=== PATIENT | female | born 1975 | race Caucasian/White ===

== ENCOUNTER 2018-04-11 21:57 | Emergency (ER) | payer BC ==
[2018-04-11 22:07] VITALS: O2SAT 97
--- NOTE | 2018-04-11 22:46 | ED.PDOC ---
History of Present Illness - General Chief Complaint: Neuro Symptoms/Deficits Stated Complaint: L elbow pain, Left side tingling Time Seen by Provider: 04/11/18 22:41 Additional Information: 42 YEAR OLD WHO HAD DONATED PLASMA AT 5 PM WAS RETURNING FROM [place] TO [place] AND AT AROUND 8.15 SHE STARTED TO EXPERIENCE TINGLING / NUMBNESS THAT STARTED IN THE HEAD AND LEFT SIDE OF THE FACE AND LEFT ARM AND LEG SHE DESCRIBES IT COMBINATION OF PAIN TINGLING AND NUMBNESS SHE DID HAVE MODERATE HEADACHE AND LEFT EYE VISION WAS BLURRED NO SLURRED SPEECH REPORTED THOUGH NO WEAKNESS SHE FEELS THE LEFT LEG FEELS LIKE A BAG OF SAND SHE STATES HER SYMPTOMS ARE NOT RESOLVED - History of Present Illness Timing/Duration: 1-3 hours Severity: moderate Improving Factors: nothing Worsening Factors: nothing Associated Symptoms: paresthesia, vision changes Allergies/Adverse Reactions: Allergies Sulfa Antibiotics Allergy (Verified 04/11/18 22:05) Home Medications: Ambulatory Orders Albuterol Inhaler [Ventolin Hfa Inhaler] 04/11/18 Review of Systems - Review of Systems Constitutional: States: no symptoms reported EENTM: States: blurred vision Respiratory: States: no symptoms reported Cardiology: States: no symptoms reported Gastrointestinal/Abdominal: States: no symptoms reported Genitourinary: States: no symptoms reported Musculoskeletal: States: no symptoms reported Skin: States: no symptoms reported Neurological: States: see HPI Endocrine: States: no symptoms reported Hematologic/Lymphatic: States: no symptoms reported Past Medical History (General) - Patient Medical History Hx Asthma: Yes Hx Diabetes: No - Vaccination History Hx Tetanus, Diphtheria Vaccination: Yes - Female History Patient is a Female of Child Bearing Age (10 -59 yrs old): Yes Patient : No Family Medical History - Family History Father Family History: Unknown Physical Exam - Physical Exam General Appearance: Alert, Comfortable Eye Exam: bilateral normal ENT Exam: normal ENT inspection, hearing grossly normal, TMs normal, pharynx normal Neck: non-tender, full range of motion, supple Respiratory: chest non-tender, lungs clear, normal breath sounds, no respiratory distress, no accessory muscle use Cardiovascular/Chest: normal peripheral pulses, regular rate, rhythm, no edema, no gallop Gastrointestinal/Abdominal: normal bowel sounds, non tender, soft, no organomegaly, no pulsatile mass Back Exam: normal inspection, no CVA tenderness, no vertebral tenderness Extremities Exam: non-tender, normal range of motion, no evidence of injury Mental Status: alert, 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6 L MCHC 32.4 L RDW 13.8 Plt Count 348 MPV 8.5 Absolute Neuts (auto) 8.90 H Absolute Lymphs (auto) 2.30 Absolute Monos (auto) 0.60 Absolute Eos (auto) 0.10 Absolute Basos (auto) 0.10 Neutrophils % 74.3 Lymphocytes % 19.0 L Monocytes % 5.0 Eosinophils % 1.1 Basophils % 0.6 PT 11.4 INR 0.980 PTT (SP) 30.3 Sodium 127 L Potassium 4.2 Chloride 96 L Carbon Dioxide 19 L Anion Gap 16.2 BUN 14 Creatinine 0.70 BUN/Creatinine Ratio 20.0 Random Glucose 548 H* Serum Osmolality 280.6 Calcium 8.5 Total Bilirubin 0.4 AST 30 ALT 26 Alkaline Phosphatase 73 Serum Total Protein 6.6 Albumin 3.3 Globulin 3.3 Albumin/Globulin Ratio 1.0 L Departure - Departure Clinical Impression: Transient ischaemic attack (TIA), and cerebral infarction without residual deficits, TIA (transient ischemic attack), Uncontrolled diabetes mellitus Time of Disposition: 00:28 Disposition: Transfer to Hospital Condition: Good Departure Forms: ED Discharge - Pt. Copy, Patient Portal Self Enrollment Home Medications: Ambulatory Orders Albuterol Inhaler [Ventolin Hfa Inhaler] 04/11/18 Transfer to Outside Facility - Transfer Information Accepting Provider:: DR MATA Accepting Facility: [facility] Reason for Transfer: specialized care not available
[2018-04-11] MEDS ORDERED: LABETALOL INJ 5 MG/ML VIAL IV ONE (22:50)
--- NOTE | 2018-04-11 23:20 | CT ---
EXAM: NONCONTRAST BRAIN CT EXAMINATION. CLINICAL INDICATION: Left-sided numbness. Possible stroke. COMPARISON: None. TECHNIQUE: Using low dose helical CT technique, thin section axial images were performed through the brain without the administration of intravenous or subarachnoid contrast material. FINDINGS: Bilateral small benign perivascular spaces are located in the lower centrum semiovale brain. Brain volume is otherwise normal. No diffuse brain swelling or brain herniation. No hydrocephalus. No subdural or epidural hematomas. No large subacute brain infarction. No parenchymal brain hemorrhage or evidence of intracranial mass lesion. The brainstem and cerebellum are normal. Cerebral white matter is grossly normal. Caudate heads, lentiform nuclei, thalami and internal capsules are normal. Bones of the skull and skull base are normal. The middle ears and mastoid air cells are clear. The partially visualized paranasal sinuses are clear. Globes and orbits are grossly normal. IMPRESSION: 1. Normal noncontrast brain CT examination. This exam was performed according to our departmental dose-optimization program, which includes automated exposure control, adjustment of the mA and/or kV according to patient size and/or use of iterative reconstruction technique. Electronically signed by: Nato Thakkar MD 04/11/2018 11:19 PM CDT
[2018-04-12 00:06] VITALS: TEMP 97.5
[2018-04-12] MEDS ORDERED: INSULIN, REG.(HUMAN) 100 U/ML VIAL IV ONE (00:29)
[2018-04-12] MEDS ORDERED: SODIUM CHLORIDE 0.9% 1000ML 1,000 ML IVS ONE (00:32)
[2018-04-12] MEDS ORDERED: SODIUM CHLORIDE 0.9% 1000ML 1,000 ML ONE (00:33)
[2018-04-12 01:00] VITALS: BP 120/79
== END 2018-04-12 01:19 | disposition short-term general hospital (02) ==
LOC: ER 21:57
DX: G45.9 Transient cerebral ischemic attack, unspecified (principal); E11.65 Type 2 diabetes mellitus with hyperglycemia; J45.909 Unspecified asthma, uncomplicated
CPT/HCPCS: 36415; 70450; 80053; 85025; 85610; 85730; 93005; J7030

== ENCOUNTER 2018-04-17 13:52 | Emergency (ER) | payer BC ==
[2018-04-17 14:09] VITALS: O2SAT 97
--- NOTE | 2018-04-17 14:23 | CT ---
EXAM DESCRIPTION: Head CLINICAL HISTORY: 42 years, Female, stroke like symptoms COMPARISON: April 11, 2018 TECHNIQUE: Head CT was performed without IV contrast. This exam was performed according to our departmental dose-optimization program, which includes automated exposure control, adjustment of the mA and/or kV according to patient size and/or use of iterative reconstruction technique. FINDINGS: There is no acute intracranial hemorrhage. No midline shift or other mass effect. The ventricles and basilar cisterns are well maintained. No posterior fossa lesion. No cortical infarct or intracranial mass is identified. The basal ganglia are unremarkable. Visualized paranasal sinuses and orbits are unremarkable. No calvarial fracture. IMPRESSION: No acute findings. Electronically signed by: Ruben Denton MD 04/17/2018 2:21 PM CDT
[2018-04-17] MEDS ORDERED: SODIUM CHLORIDE 0.9% (FLUSH) 10 ML SYG IV PRN (14:39)
[2018-04-17] MEDS ORDERED: ASPIRIN TABLET 325 MG TAB PO ONE (14:39)
[2018-04-17] MEDS ORDERED: MECLIZINE HCL 12.5 MG TAB PO ONE (14:40)
[2018-04-17] MEDS ORDERED: SODIUM CHLORIDE 0.9% 1000ML 1,000 ML IVS ONE (14:40)
--- NOTE | 2018-04-17 14:50 | ED.PDOC ---
History of Present Illness - General Chief Complaint: Neuro Symptoms/Deficits Stated Complaint: left side tingling Time Seen by Provider: 04/17/18 14:28 Source: patient Exam Limitations: no limitations - History of Present Illness Initial Comments: PT REPORTS ONSET OF NUMBNESS AND TINGLING TO THE LEFT FACE WHILE IN THE SHOWER TODAY. PT STATES THAT TINGLING PROGRESSED TO INCLUDE THE LUE AND LLE. PT ALSO REPORTS DIZZINESS AND WEAKNESS TO LLE. PT WAS DX WITH A TIA LAST WEEK WHEN SHE HAD SIMILAR SYMPTOMS. SHE STATES SHE WAS TRANSFERRED TO [facility] [place] AND HAD A WORKUP AND NEUROLOGY CONSULT. Severity: moderate Improving Factors: nothing Worsening Factors: nothing Associated Symptoms: paresthesia, weakness Allergies/Adverse Reactions: Allergies Sulfa Antibiotics Allergy (Verified 04/11/18 22:05) Home Medications: Ambulatory Orders Albuterol Inhaler [Ventolin Hfa Inhaler] 04/11/18 Review of Systems - Review of Systems Constitutional: Denies: chills, fever EENTM: Denies: ear discharge, nose congestion Respiratory: Denies: cough, short of breath Cardiology: Denies: chest pain, palpitations Gastrointestinal/Abdominal: Denies: nausea, vomiting Genitourinary: Denies: dysuria, frequency Musculoskeletal: Denies: joint pain, joint swelling Skin: Denies: change in hair/nails, dryness Neurological: States: numbness, paresthesia, tingling, weakness Endocrine: States: no symptoms reported Hematologic/Lymphatic: States: no symptoms reported Past Medical History (General) - Patient Medical History Hx Asthma: Yes Hx Diabetes: No Hx Other - free text: TIA - Vaccination History Hx Tetanus, Diphtheria Vaccination: Yes - Female History Patient : No Family Medical History - Family History Father Family History: Unknown Physical Exam - Physical Exam General Appearance: Alert, Comfortable, Obese, Well Developed, Well Groomed, Well Hydrated, Other - PT LYING ON HER ABDOMEN. 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 PTS BP NOW 150/101. IV HYDRALAZINE ORDERED. WILL CONSULT NEUROLOGY IN REGARDS TO TPA. 04/17/18 16:[address] OSORIO WHO AGREES WITH PLAN TO OBSERVE AND NOT ADMINISTER TPA, DUE TO MINOR SYMPTOMS. - Results/Orders Results/Orders: Laboratory Tests 04/17/18 04/17/18 04/17/18 14:55 14:55 14:55 WBC 8.8 RBC 4.88 Hgb 13.3 Hct 38.8 MCV 79.6 L MCH 27.2 MCHC 34.2 RDW 13.7 Plt Count 344 MPV 8.0 Absolute Neuts (auto) 6.00 Absolute Lymphs (auto) 2.00 Absolute Monos (auto) 0.60 Absolute Eos (auto) 0.20 Absolute Basos (auto) 0.10 Neutrophils % 67.9 Lymphocytes % 23.1 Monocytes % 6.5 Eosinophils % 1.8 Basophils % 0.7 PT 10.6 INR 0.910 PTT (SP) 30.7 Sodium 135 Potassium 4.1 Chloride 104 Carbon Dioxide 23 Anion Gap 12.1 BUN 13 Creatinine 0.51 L BUN/Creatinine Ratio 25.5 H POC Glucose Random Glucose 196 H Serum Osmolality 275.6 Calcium 9.2 Total Bilirubin 0.5 AST 23 ALT 28 Alkaline Phosphatase 74 Creatine Kinase 45 CK-MB (CK-2) 2.9 CK-MB (CK-2) % Not Reportable Troponin I < 0.02 Serum Total Protein 6.8 Albumin 3.6 Globulin 3.2 Albumin/Globulin Ratio 1.1 Urine Color Urine Appearance Urine pH Ur Specific [place] Urine Protein Urine Glucose (UA) Urine Ketones Urine Blood Urine Nitrite Urine Bilirubin Urine Urobilinogen Ur Leukocyte Esterase Urine RBC Urine WBC Ur Epithelial Cells Amorphous Sediment Urine Bacteria 04/17/18 04/17/18 14:55 16:05 WBC RBC Hgb Hct MCV MCH MCHC RDW Plt Count MPV Absolute Neuts (auto) Absolute Lymphs (auto) Absolute Monos (auto) Absolute Eos (auto) Absolute Basos (auto) Neutrophils % Lymphocytes % Monocytes % Eosinophils % Basophils % PT INR PTT (SP) Sodium Potassium Chloride Carbon Dioxide Anion Gap BUN Creatinine BUN/Creatinine Ratio POC Glucose 191 H Random Glucose Serum Osmolality Calcium Total Bilirubin AST ALT Alkaline Phosphatase Creatine Kinase CK-MB (CK-2) CK-MB (CK-2) % Troponin I Serum Total Protein Albumin Globulin Albumin/Globulin Ratio Urine Color Yellow Urine Appearance Clear Urine pH 5.5 Ur Specific [place] 1.020 Urine Protein Negative Urine Glucose (UA) 250 H Urine Ketones Negative Urine Blood Negative Urine Nitrite Negative Urine Bilirubin Negative Urine Urobilinogen 0.2 Ur Leukocyte Esterase Negative Urine RBC 0-1 Urine WBC 0-1 Ur Epithelial Cells 0-1 Amorphous Sediment 1+ Urine Bacteria Rare - EKG/XRAY/CT EKG: Sinus - @89BPM, NL INTERVALS, NL AXIS, no ST T wave changes, Unchanged from - 04/11/18 CT Ordered: Yes CT Interpretation Call Back: No - NEGATIVE CT HEAD, PER RAD Departure - Departure Clinical Impression: Hypertension, CVA (cerebral vascular accident) Time of Disposition: 16:20 Disposition: Transfer to Hospital Condition: Fair Departure Forms: ED Discharge - Pt. Copy, Patient Portal Self Enrollment Home Medications: Ambulatory Orders Albuterol Inhaler [Ventolin Hfa Inhaler] 04/11/18 Transfer to Outside Facility - Transfer Information Accepting Provider:: DR. NIXON Accepting Facility: [facility] [place] Reason for Transfer: required specialist not available - NEUROLOGIST
[2018-04-17] MEDS ORDERED: hydrALAZINE HCl 20 MG/ML VIAL IV ONE (15:54)
[2018-04-17] MEDS ORDERED: KETOROLAC TROMETHAMINE INJ 30 MG/ML VIAL IV ONE (16:03)
[2018-04-17] MEDS ORDERED: PROMETHAZINE HCL INJ 25 MG in SODIUM CHLORIDE 0.9% 50ML 50 ML IVPB ONE (16:04)
[2018-04-17] MEDS ORDERED: SODIUM CHLORIDE 0.9% 50ML 50 ML ONE (16:34)
[2018-04-17] MEDS ORDERED: PROMETHAZINE HCL INJ 25 MG/ML VIAL ONE (16:34)
[2018-04-17 17:06] VITALS: BP 150/97
[2018-04-17 17:44] VITALS: TEMP 98.2
== END 2018-04-17 17:25 | disposition short-term general hospital (02) ==
LOC: ER 13:52
DX: I63.9 Cerebral infarction, unspecified (principal); R20.0 Anesthesia of skin; I10 Essential (primary) hypertension; J45.909 Unspecified asthma, uncomplicated
CPT/HCPCS: 36415; 70450; 80053; 81001; 82550; 82553; 82948; 84484; 85025; 85610; 85730; 93005; A4216; J0360; J1885; J2550; J7030

== ENCOUNTER 2020-03-08 21:29 | Emergency (ER) | payer BC ==
[2020-03-08] MEDS ORDERED: TETANUS-DIPHTHERIA TOXOIDS (TD 1 EA SYG IM ONE (21:50)
--- NOTE | 2020-03-08 21:52 | ED.PDOC ---
History of Present Illness - General Time Seen by Provider: 03/08/20 21:49 Source: patient Additional Information: 44yo F presents for bleeding finger s/p wound from [place]. She was able to remove the hook, but noted significant bleeding from her L index finger subs equently. Bleeding at present, however, has stopped. She reports normal sensation and movement. Needs tetanus updated. No other reported issues. - History of Present Illness Occurred: just prior to arrival Allergies/Adverse Reactions: Allergies Sulfa Antibiotics Allergy (Verified 04/11/18 22:05) Home Medications: Ambulatory Orders Albuterol Inhaler [Ventolin Hfa Inhaler] 04/11/18 Cephalexin Monohydrate [Keflex] 500 mg PO QID 7 Days cap 03/08/20 Review of Systems - Review of Systems Constitutional: Denies: chills, fever Respiratory: Denies: cough, short of breath Cardiology: Denies: chest pain, palpitations Gastrointestinal/Abdominal: States: no symptoms reported Musculoskeletal: Denies: joint pain, joint swelling, muscle pain Skin: States: other - Wound to L index finger. Denies: change in color Neurological: Denies: numbness, weakness Past Medical History (General) - Patient Medical History Hx Asthma: Yes Hx Diabetes: No - Vaccination History Hx Tetanus, Diphtheria Vaccination: Yes - Female History Patient : No Family Medical History - Family History Father Family History: Unknown Physical Exam - Physical Exam General Appearance: Alert, Comfortable Neck: full range of motion, supple Cardiovascular/Respiratory: regular rate, rhythm, normal peripheral pulses Hand Exam: normal ROM, laceration - Small wound to the tip of the L index finger. Hemostatic. No erythema. Full ROM. NV intact. Neuro/Tendon: normal sensation, normal motor functions, no evidence tendon injury Progress - Progress Progress: 03/08/20 21:59 DDX: soft tissue injury, vascular injury, need for tetanus. Esau Bravo MD. #[id number] 03/08/20 22:00 Wound hemostatic. Discussed home care and updated tetanus. Result and findings were discussed with the patient. The patient is comfortable with the plan for discharge with close outpatient follow up at this time. We discussed pathways for follow up and that failure to follow up could result in poor outcome. We reviewed reasons for immediate return including new and worsening symptoms. All questions answered. It was a pleasure to care for this patient today. Departure - Departure Clinical Impression: Finger injury Qualifiers: Encounter type: initial encounter Laterality: left Qualified Code(s): S69.92XA - Unspecified injury of left wrist, hand and finger(s), initial encounter Fish hook injury of finger Qualifiers: Encounter type: initial encounter Laterality: left Qualified Code(s): S69.92XA - Unspecified injury of left wrist, hand and finger(s), initial encounter Time of Disposition: 21:52 Disposition: Discharge to Home or Self Care Condition: Good Instructions: Wound Care (DC) Prescriptions: Cephalexin Monohydrate [Keflex] 500 mg PO QID 7 Days cap Home Medications: Ambulatory Orders Albuterol Inhaler [Ventolin Hfa Inhaler] 04/11/18 Cephalexin Monohydrate [Keflex] 500 mg PO QID 7 Days cap 03/08/20
[2020-03-08 21:58] VITALS: O2SAT 97
[2020-03-08 23:12] VITALS: BP 142/107; TEMP 98.2
== END 2020-03-08 22:25 | disposition home or self-care (01) ==
LOC: ER 21:29
DX: S61.231A Puncture wound without foreign body of left index finger without damage to nail, initial encounter (principal); W26.8XXA Contact with other sharp object(s), not elsewhere classified, initial encounter; Y92.9 Unspecified place or not applicable; J45.909 Unspecified asthma, uncomplicated